=== PATIENT | male | born 1960 | race Caucasian/White ===

== ENCOUNTER 2018-11-19 06:15 | Emergency (ER) | payer BC, OTHER ==
[~2018-11-19] VITALS: Ht 160 cm; Wt 70.3 kg
--- NOTE | 2018-11-19 06:20 | NUR ---
58 Y/O M BIBA FROM HOME WITH C/O GENERALIZED BODY ACHES X3DAYS. AAOX4. C/O CHEST PAIN, LOCATED AT STERNAL AREA. 10/10 PAIN, ACHING. PAIN DOESN'T RADIATE. NSR, HR 61. ERMD NOTIFIED. BED IN LOWEST POSITION. WILL CONTINUE TO MONITOR.
[2018-11-19] MEDS ORDERED: MORPHINE SULFATE 4 MG/ML SYR IVP ONE (06:25)
[2018-11-19] MEDS ORDERED: NACL 0.9% 1,000 ML IV ONE ×2 (06:25→07:55)
[2018-11-19] MEDS ORDERED: TAMS0.4C96 PO (06:38)
[2018-11-19] MEDS ORDERED: GABA300C PO (06:38)
[2018-11-19] MEDS ORDERED: DETLA4 PO (06:38)
[2018-11-19] MEDS ORDERED: SULF500T6 PO (06:38)
[2018-11-19] MEDS ORDERED: [UNRECOGNIZED DRUG - CODE] PO (06:38)
[2018-11-19] MEDS ORDERED: RIFA300C6 PO (06:38)
[2018-11-19] MEDS ORDERED: THIA50TA39 PO (06:38)
[2018-11-19] MEDS ORDERED: MORPHINE SULFATE 2 MG/ML SYR ONE (06:51)
[2018-11-19 06:56] LABS: BASOPHILS % (AUTO) 0.5 % (0.0-2.0); EOSINOPHILS # (AUTO) 0.1 K/uL (0-0.4); EOSINOPHILS % (AUTO) 1.5 % (0.0-4.0); HEMATOCRIT 41.2 % (36-52); HEMOGLOBIN 13.9 g/dL (12.0-18.0); MEAN CORPUSCULAR HEMOGLOBIN 31 pg (27-31); MEAN CORPUSCULAR HGB CONC 34 g/dL (33-37); MONOCYTES # (AUTO) 0.6 K/uL (0.8-1.0); MONOCYTES % (AUTO) 7.8 % (1.7-9.3); NEUTROPHILS # (AUTO) 6.4 K/uL (1.8-7.7); NEUTROPHILS % (AUTO) 78.2 % (42.2-75.2); PLATELET COUNT (AUTO) 357 K/uL (140-450); RED BLOOD CELL COUNT(AUTO) 4.53 MIL/uL (4.20-6.10); RED CELL DISTRIBUTION WIDTH 15.3 % (11.6-13.7); WHITE BLOOD COUNT (AUTO) 8.1 K/uL (4.8-10.8)
[2018-11-19 06:57] LABS: APPEARANCE,URINE CLEAR (CLEAR); BILIRUBIN,URINE NEGATIVE (NEGATIVE); BLOOD, URINE TRACE-L (NEGATIVE); COLOR,URINE YELLOW (YELLOW); LEUKOCYTE ESTERASE ,URINE NEGATIVE (NEGATIVE); NITRITE, URINE NEGATIVE (NEGATIVE); UGLUCOSE NEGATIVE (NEGATIVE)
--- NOTE | 2018-11-19 07:05 | NUR ---
REPORT GIVEN TO RIKY RIOJAS. TRANSFER OF CARE AT THIS TIME.
[2018-11-19 07:06] LABS: RBC,URINE 0-5 /HPF (0-5)
[2018-11-19 07:07] LABS: WBC,URINE 0-5 /HPF (0-5)
--- NOTE | 2018-11-19 07:08 | NUR ---
X-RAY AT BEDSIDE
[2018-11-19 07:10] LABS: ALBUMIN 4.2 g/dL (3.4-5.0); ANION GAP 12.9 (8-16); CARBON DIOXIDE 26.1 mmol/L (21-32); CREATININE 1.2 mg/dL (0.7-1.3); PROTHROMBIN TIME 16.8 secs (10.8-13.4); TOTAL BILIRUBIN 0.3 mg/dL (0.0-1.0)
--- NOTE | 2018-11-19 07:32 | NUR ---
PT RESTING IN BED, NO NEW NEEDS AT THIS TIME.
[2018-11-19] MEDS ORDERED: POTASSIUM CHLORIDE 20% 40 MEQ/15 ML UDC PO ONE (07:35)
[2018-11-19] MEDS ORDERED: MAGNESIUM OXIDE 400 MG TAB PO ONE (07:35)
--- NOTE | 2018-11-19 07:40 | NUR ---
CALLED PHARMACY FOR MAG TABLETS, PER YOLA, THEY WILL BRING IT OVER
--- NOTE | 2018-11-19 08:12 | NUR ---
PT STATES MEDICATION PROVIDED PAIN RELIEF, NO CHEST PAIN AT THIS TIME.
--- NOTE | 2018-11-19 08:23 | NUR ---
DR. GUIDRY AT BEDSIDE RE EVALUATING PT
--- NOTE | 2018-11-19 09:33 | NUR ---
[facility] CALLED FOR PT PER REQUEST, WILL ARRIVE IN 30-45 MIN
--- NOTE | 2018-11-19 09:45 | NUR ---
Patient discharged with v/s stable. Written and verbal after care instructions given and explained. Patient verbalized understanding. Ambulatory with steady gait. All questions addressed prior to discharge. Advised to follow up with PMD. Pt will wait in lobby for yellow cab.
[2018-11-19 09:46] VITALS: BP 114/48
== END 2018-11-19 09:45 | disposition home or self-care (01) ==
LOC: MED 06:15
DX: E87.6 Hypokalemia (principal); E86.0 Dehydration; M25.561 Pain in right knee; M25.562 Pain in left knee; M25.461 Effusion, right knee; Z86.73 Personal history of transient ischemic attack (TIA), and cerebral infarction without residual deficits; Z79.899 Other long term (current) drug therapy; Z95.5 Presence of coronary angioplasty implant and graft
CPT/HCPCS: 29505; 36415; 71045; 73562; 80053; 81001; 83605; 83880; 84484; 85025; 85610; 87040; 87086; 93005; 96361; 96374; 99284; J2270; J7030; Q0092

== ENCOUNTER 2019-06-12 05:34 | Emergency (ER) | payer OTHER ==
[~2019-06-12] VITALS: Ht 160 cm; Wt 74.8 kg
[~2019-06-12 05:34] MED LIST: DETLA4 PO; GABA300C PO; RIFA300C6 PO; SULF500T6 PO; TAMS0.4C96 PO; THIA50TA39 PO; [UNRECOGNIZED DRUG - CODE] PO
--- NOTE | 2019-06-12 05:35 | NUR ---
58 YEAR OLD MALE BIBA COMPLAINS OF HEADACHE, NAUSEA, AND BODY ACHE X 40MINS. PATIENT STATES HE WOKE UP WITH FLU LIKE SYMPTOMS. PATIENT ALERT AND ORIENTED, BREATHING EVEN AND UNLABORED, SKIN WARM AND DRY. BED IN LOWEST POSITION, LOCKED, BED RAIL UPX1. PMH - HTN, STENTS ALLERGIES - NKA
[2019-06-12] MEDS ORDERED: KETOROLAC 30 MG/ML VIAL IM ONE (05:40)
[2019-06-12 05:44] VITALS: BP 95/44
--- NOTE | 2019-06-12 05:50 | NUR ---
PATIENT ALERT AND ORIENTED, BREATHING EVEN AND UNLABORED.
--- NOTE | 2019-06-12 06:10 | NUR ---
PATIENT RESTING WITH EYES CLOSED, BREATHING EVEN AND UNLABORED
[2019-06-12] MEDS ORDERED: HYDROcodone/APAP 5/325 MG 1 TAB TAB PO ONE (06:15)
[2019-06-12 06:40] VITALS: BP 97/46
--- NOTE | 2019-06-12 06:40 | NUR ---
Patient discharged with v/s stable. Written and verbal after care instructions ABOUT INFLUENZA given and explained. Patient alert, oriented and verbalized understanding of instructions. Ambulatory with steady gait. All questions addressed prior to discharge. ID band removed. Patient advised to follow up with PMD. Rx of TAMIFLU AND IBUPROFEN given. Patient educated on indication of medication including possible reaction and side effects. Opportunity to ask questions provided and answered. PATIENT INSTRUCTED NOT TO DRIVE DUE TO [place], STATED HE WILL BE GETTING A CAB
== END 2019-06-12 06:40 | disposition home or self-care (01) ==
LOC: MED 05:34
DX: J11.1 Influenza due to unidentified influenza virus with other respiratory manifestations (principal); R51 Headache; I10 Essential (primary) hypertension; Z79.899 Other long term (current) drug therapy; Z86.73 Personal history of transient ischemic attack (TIA), and cerebral infarction without residual deficits
CPT/HCPCS: 96372; 99283; J1885

== ENCOUNTER 2021-08-21 05:54 | Emergency (ER) | payer OTHER, SELFPAY ==
[~2021-08-21] VITALS: Ht 165.1 cm; Wt 74.8 kg
[~2021-08-21 05:54] MED LIST changes: +ASPI-1856 PO; +ATOR20TA40 PO; +LISI5TAB24 PO; +METO25TA PO; -RIFA300C6 PO; +WARF-83 PO
[2021-08-21 05:55] VITALS: BP 118/52
--- NOTE | 2021-08-21 05:57 | NUR ---
Dr. Gray examining patient.
--- NOTE | 2021-08-21 05:58 | NUR ---
PT URSZULA GODINEZS. TAKEN TO BED 4
--- NOTE | 2021-08-21 06:25 | NUR ---
walked blood to lab received by photonic laboratory technician
--- NOTE | 2021-08-21 06:32 | NUR ---
xr at bedside
[2021-08-21 07:04] LABS: BASOPHILS % (AUTO) 0.4 % (0.0-2.0); EOSINOPHILS # (AUTO) 0.2 K/uL (0-0.4); EOSINOPHILS % (AUTO) 3.9 % (0.0-4.0); HEMATOCRIT 35.9 % (36-52); HEMOGLOBIN 12.1 g/dL (12.0-18.0); LYMPHOCYTES # (AUTO) 0.8 K/uL (2.0-11.5); LYMPHOCYTES % (AUTO) 19.5 % (20.5-51.1); MEAN CORPUSCULAR HEMOGLOBIN 31 pg (27-31); MEAN CORPUSCULAR HGB CONC 34 g/dL (33-37); MONOCYTES # (AUTO) 0.3 K/uL (0.8-1.0); MONOCYTES % (AUTO) 6.4 % (1.7-9.3); NEUTROPHILS # (AUTO) 2.9 K/uL (1.8-7.7); NEUTROPHILS % (AUTO) 69.8 % (42.2-75.2); PLATELET COUNT (AUTO) 153 K/uL (140-450); RED BLOOD CELL COUNT(AUTO) 3.95 MIL/uL (4.20-6.10); RED CELL DISTRIBUTION WIDTH 14.6 % (11.6-13.7); WHITE BLOOD COUNT (AUTO) 4.1 K/uL (4.8-10.8)
[2021-08-21 07:18] LABS: PROTHROMBIN TIME 14.7 secs (10.8-13.4)
--- NOTE | 2021-08-21 07:19 | NUR ---
Pt report given to Gayle LAN. Transfer of care at this time.
--- NOTE | 2021-08-21 07:20 | NUR ---
RECEIVED REPORT FROM RIKY INGRAM. TRANSFER OF CARE AT THIS TIME.
[2021-08-21 07:21] LABS: ALBUMIN 3.3 g/dL (3.4-5.0); ANION GAP 12.3 (8-16); CARBON DIOXIDE 25.7 mmol/L (21-32); CREATININE 0.8 mg/dL (0.6-1.3); TOTAL BILIRUBIN 0.9 mg/dL (0.0-1.0)
--- NOTE | 2021-08-21 07:41 | NUR ---
PT RESTING IN BED, HOB ELEVATED, VSS, WILL CONTINUE TO MONITOR.
--- NOTE | 2021-08-21 08:31 | NUR ---
INTERVENTIONAL TECH AT PT BEDSIDE.
--- NOTE | 2021-08-21 09:06 | NUR ---
PT SLEEPING, VISIBLE EQUAL RISE AND FALL OF CHEST, VSS, WILL CONTINUE TO MONITOR.
[2021-08-21 09:49] VITALS: BP 126/66
--- NOTE | 2021-08-21 09:49 | NUR ---
Patient discharged with v/s stable. Written and verbal after care instructions given FOR CHEST PAIN PBSERVATION and explained. Patient verbalized understanding. Ambulatory with steady gait. All questions addressed prior to discharge. Advised to follow up with PMD.
--- NOTE | 2021-08-21 09:57 | NUR ---
CALLED [facility] FOR PT TAXI VOUCHER. ETA 45MINUTES PT TO WAIT IN LOBBY.
--- NOTE | 2021-08-21 10:14 | NUR ---
PT AMBULATED TO TAXI.
--- NOTE | 2021-08-21 10:15 | NUR ---
TAXI VOUCHER GIVEN TO BAND PRESSER AND FORGOT TO KEEP PINK SLIP. DENTURE PACKER XANDER HARRIS MADE AWARE AND STATED IT WAS FINE
[2021-08-22] MEDS ORDERED: DIPH25TA53 PO (09:30)
[2021-08-22] MEDS ORDERED: PRED20TA5 PO (09:30)
== END 2021-08-21 09:49 | disposition home or self-care (01) ==
LOC: MED 05:54
DX: R07.2 Precordial pain (principal); I10 Essential (primary) hypertension; Z86.73 Personal history of transient ischemic attack (TIA), and cerebral infarction without residual deficits; Z79.899 Other long term (current) drug therapy; Z79.82 Long term (current) use of aspirin
CPT/HCPCS: 36415; 71045; 80053; 83880; 84484; 85025; 85610; 85730; 93005; 99285; Q0092

== ENCOUNTER 2021-08-22 07:41 | Emergency (ER) | payer OTHER ==
[~2021-08-22] VITALS: Ht 172.7 cm; Wt 71.2 kg
--- NOTE | 2021-08-22 07:42 | NUR ---
Patient BIBA to bed 6.
[2021-08-22 07:47] VITALS: BP 138/88
--- NOTE | 2021-08-22 07:55 | NUR ---
Pt bib amr c/o swollen tongue with dry cough, no sob x am. PT DENIES N/V/D; SKIN IS INTACT, PINK/WARM/DRY; AAOX4, PERRL, WITH EVEN AND STEADY GAIT; LUNGS CLEAR BL, BREATHING UNLABORED; HR EVEN AND REGULAR. BS ACTIVE X4. PT DENIES ANY FEVER, CP, SOB AT THIS TIME; PT STATES 2/10 PAIN AT THIS TIME; VSS; PATIENT POSITIONED FOR COMFORT; HOB ELEVATED; BEDRAILS UP X2; BED DOWN.
--- NOTE | 2021-08-22 08:36 | NUR ---
er md dr Vaughan at bedside
[2021-08-22] MEDS ORDERED: diphenhydrAMINE 50 MG CAP PO ONE (08:45)
[2021-08-22] MEDS ORDERED: KETOROLAC 60 MG/2 ML VIAL IM ONE (08:45)
--- NOTE | 2021-08-22 08:59 | NUR ---
PATIENT MEDICATED PER ORDERS, PATIENT TOLERATED WELL.
--- NOTE | 2021-08-22 09:25 | NUR ---
60/M BIB SELF, AMBULATORY W/ STEADY GAIT, AA&OX4; PATIENT PRESENTS TO ED WITH C/O THROAT PAIN 5/10 AND TONGUE SWELLING SINCE THIS MORNING. PATIENT DENIES EXPOSURE TO NEW MEDICATIONS, SOAPS, FOOD, DETERGENT. DENIES SOB, CP, N/V/D, MEDICATION FOR SYMPTOM RELIEF. NO SIGNS OF RESPIRATORY DISTRESS NOTED, RR EVEN AND UNLABORED, AIRWAY PATENT. PMH: ANGIOPLASTY, HTN MEDS: WARFARIN, OMEPRAZOLE, FOLIC ACID, MTHOTREXATE, PRAVASTATIN, OMEGA 3, D3, "BEE THERAPY" Addendum: 08/22/21 at 0925 by [email or web address] 60/M BIBA, AMBULATORY W/ STEADY GAIT, AA&OX4; PATIENT PRESENTS TO ED WITH C/O THROAT PAIN 5/10 AND TONGUE SWELLING SINCE THIS MORNING. PATIENT DENIES EXPOSURE TO NEW MEDICATIONS, SOAPS, FOOD, DETERGENT. DENIES SOB, CP, N/V/D, MEDICATION FOR SYMPTOM RELIEF. NO SIGNS OF RESPIRATORY DISTRESS NOTED, RR EVEN AND UNLABORED, AIRWAY PATENT. PMH: ANGIOPLASTY, HTN MEDS: WARFARIN, OMEPRAZOLE, FOLIC ACID, MTHOTREXATE, PRAVASTATIN, OMEGA 3, D3, "BEE THERAPY"
[2021-08-22] MEDS ORDERED: DIPH25TA53 PO (09:30)
[2021-08-22] MEDS ORDERED: PRED20TA5 PO (09:30)
[2021-08-22 10:25] VITALS: BP 130/78
--- NOTE | 2021-08-22 10:25 | NUR ---
Patient discharged with v/s stable. Written and verbal after care instructions ABOUT ANAPHYLACTIC REACTION given and explained. Patient alert, oriented and verbalized understanding of instructions. Ambulatory with steady gait. All questions addressed prior to discharge. ID band removed. Patient advised to follow up with PMD. Rx of BENADRYL AND DELTASONE given. PATIENT PROVIDED WITH TWO BUS PASSES UPON DISCHARGE.
== END 2021-08-22 10:25 | disposition home or self-care (01) ==
LOC: MED 07:41
DX: K13.0 Diseases of lips (principal); L53.9 Erythematous condition, unspecified; I10 Essential (primary) hypertension; Z79.899 Other long term (current) drug therapy; Z86.73 Personal history of transient ischemic attack (TIA), and cerebral infarction without residual deficits; Z98.890 Other specified postprocedural states
CPT/HCPCS: 96372; 99283; J1885; Q0163

== ENCOUNTER 2021-09-03 12:28 | Emergency (ER) | payer OTHER ==
[~2021-09-03] VITALS: Ht 160 cm; Wt 70.4 kg
[~2021-09-03 12:28] MED LIST changes: +DIPH25TA53 PO; +PRED20TA5 PO
[2021-09-03 12:35] VITALS: BP 141/74
--- NOTE | 2021-09-03 12:46 | NUR ---
Noemy castellano in [facility] - 09/03/21 at 1248 by [email or web address] PATIENT AMBULATED TO BED 3.
--- NOTE | 2021-09-03 12:48 | NUR ---
PATIENT W/C ASSISTED TO BED 3.
--- NOTE | 2021-09-03 13:00 | NUR ---
60 Y/O MALE BIB SELF C/O DIZZINESS, HEADACHE RATED 7/10 X TODAY. PT STATES HE WAS SEEN THIS AM AT [facility] BUT STATES "THERE WAS NO TREATMENT RENDERED". CURRENTLY PT DENIES LOC, FEVER, CHILLS, NAUSEA, VOMITING. PT DENIES SOB, CHEST PAIN. PT DENIES NECK PAIN. PT TOOK TYLENOL PRIOR TO ARRIVAL WITH NO SYMPTOMATIC PAIN RELIEF. PT ALERT AND ORIENTED X4. BED IN LOWEST POSITION. BEDSIDE RAIL X1. CALL LIGHT WITHIN REACH. PMH: HTN, HLD, STROKE, HEART SURGERY IN 2012
[2021-09-03] MEDS ORDERED: MECLIZINE 25 MG TAB PO ONE (13:15)
--- NOTE | 2021-09-03 13:15 | NUR ---
AT PT BEDSIDE
[2021-09-03] MEDS ORDERED: diazePAM 5 MG TAB PO ONE (13:40)
[2021-09-03] MEDS ORDERED: DIAZ5TAB8 PO (13:50)
[2021-09-03 14:42] VITALS: BP 141/74
--- NOTE | 2021-09-03 14:43 | NUR ---
Patient discharged with v/s stable. Written and verbal after care instructions given and explained. Patient alert, oriented and verbalized understanding of instructions. Ambulatory with steady gait. All questions addressed prior to discharge. ID band removed. Patient advised to follow up with PMD. Rx of DIAZEPAM given. Patient educated on indication of medication including possible reaction and side effects. Opportunity to ask questions provided and answered.
== END 2021-09-03 14:42 | disposition home or self-care (01) ==
LOC: MED 12:28
DX: R42 Dizziness and giddiness (principal); R51.9 Headache, unspecified; I10 Essential (primary) hypertension; Z79.899 Other long term (current) drug therapy; Z86.73 Personal history of transient ischemic attack (TIA), and cerebral infarction without residual deficits; Z98.890 Other specified postprocedural states
CPT/HCPCS: 81002; 99283; J8597

== ENCOUNTER 2021-09-15 01:03 | Emergency (ER) | payer OTHER ==
[~2021-09-15] VITALS: Ht 170.2 cm; Wt 74.8 kg
[~2021-09-15 01:03] MED LIST changes: +DIAZ5TAB8 PO
--- NOTE | 2021-09-15 01:07 | NUR ---
PT BROUGHT TO BED 1 VIA [facility]YAAN ONEILL
[2021-09-15 01:12] VITALS: BP 130/68
[2021-09-15] MEDS ORDERED: CYCL-711 PO (01:29)
[2021-09-15] MEDS ORDERED: TRI48 PO (01:29)
[2021-09-15] MEDS ORDERED: WARF3TAB18 PO (01:29)
[2021-09-15] MEDS ORDERED: OMEP40EC23 PO (01:29)
[2021-09-15] MEDS ORDERED: PRAV20TA5 PO (01:29)
[2021-09-15] MEDS ORDERED: HYDROcodone/APAP 5/325 MG 1 TAB TAB PO ONE (02:05)
--- NOTE | 2021-09-15 02:10 | NUR ---
medicated as per ERMDs order, tolerated well.
[2021-09-15 02:17] LABS: BASOPHILS # (AUTO) 0.1 K/uL (0.00-0.22); BASOPHILS % (AUTO) 0.6 % (0.0-2.0); EOSINOPHILS # (AUTO) 0.2 K/uL (0-0.4); EOSINOPHILS % (AUTO) 1.9 % (0.0-4.0); HEMATOCRIT 36.2 % (36-52); HEMOGLOBIN 11.9 g/dL (12.0-18.0); LYMPHOCYTES # (AUTO) 1.3 K/uL (2.0-11.5); LYMPHOCYTES % (AUTO) 15.7 % (20.5-51.1); MEAN CORPUSCULAR HEMOGLOBIN 31 pg (27-31); MEAN CORPUSCULAR HGB CONC 33 g/dL (33-37); MEAN CORPUSCULAR VOLUME 93.1 fL (80-94); MONOCYTES # (AUTO) 0.7 K/uL (0.8-1.0); MONOCYTES % (AUTO) 8.7 % (1.7-9.3); NEUTROPHILS % (AUTO) 73.1 % (42.2-75.2); PLATELET COUNT (AUTO) 192 K/uL (140-450); RED BLOOD CELL COUNT(AUTO) 3.89 MIL/uL (4.20-6.10); WHITE BLOOD COUNT (AUTO) 8.2 K/uL (4.8-10.8)
[2021-09-15 02:47] LABS: PROTHROMBIN TIME 12.1 secs (10.8-13.4)
[2021-09-15 02:48] LABS: ALBUMIN 3.1 g/dL (3.4-5.0); ANION GAP 10.6 (8-16); CARBON DIOXIDE 27.9 mmol/L (21-32); CREATININE 0.8 mg/dL (0.6-1.3); POTASSIUM 3.5 mmol/L (3.5-5.1); TOTAL BILIRUBIN 0.4 mg/dL (0.0-1.0)
[2021-09-15] MEDS ORDERED: ACET-10509 PO ×2 (03:57→06:12)
--- NOTE | 2021-09-15 05:21 | NUR ---
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
[2021-09-15 06:04] VITALS: BP 119/79
--- NOTE | 2021-09-15 06:16 | NUR ---
Patient discharged with v/s stable. Written and verbal after care instructions given and explained. Patient alert, oriented and verbalized understanding of instructions. Ambulatory with steady gait. All questions addressed prior to discharge. ID band removed. Patient advised to follow up with PMD. Rx of ACETAMINOPHEN given. Patient educated on indication of medication including possible reaction and side effects. Opportunity to ask questions provided and answered. TAXI VOUCHER PROVIDED FOR PT. PT HAS HOUSE KEYS, CELL PHONE, AND BELONGINGS (INCLUDING MEDICATION) AT [facility].
== END 2021-09-15 06:04 | disposition home or self-care (01) ==
LOC: MED 01:03
DX: S63.502A Unspecified sprain of left wrist, initial encounter (principal); R07.89 Other chest pain; I10 Essential (primary) hypertension; Z79.899 Other long term (current) drug therapy; Z86.73 Personal history of transient ischemic attack (TIA), and cerebral infarction without residual deficits; Z98.890 Other specified postprocedural states; X58.XXXA Exposure to other specified factors, initial encounter; Y93.89 Activity, other specified; Y92.89 Other specified places as the place of occurrence of the external cause; Y99.8 Other external cause status
CPT/HCPCS: 36415; 71045; 73110; 80053; 83880; 84484; 85025; 85610; 85730; 93005; 99285; Q0092

== ENCOUNTER 2021-09-17 11:54 | Emergency (ER) | payer OTHER ==
[~2021-09-17] VITALS: Ht 160 cm; Wt 75.7 kg
[~2021-09-17 11:54] MED LIST changes: +ACET-10509 PO; -ASPI-1856 PO; +CYCL-711 PO; -DETLA4 PO; -DIAZ5TAB8 PO; -DIPH25TA53 PO; -LISI5TAB24 PO; +OMEP40EC23 PO; +PRAV20TA5 PO; -PRED20TA5 PO; -SULF500T6 PO; -TAMS0.4C96 PO; +TRI48 PO; -WARF-83 PO; +WARF3TAB18 PO; -[UNRECOGNIZED DRUG - CODE] PO
[2021-09-17 11:58] VITALS: BP 129/84
--- NOTE | 2021-09-17 12:15 | NUR ---
60yo male PT C/O OF DULLPAIN THAT EXTENDS FROM TOP OF LEFT HAND TO LEFT WRIST AND FOREARM. PT STATES HE FELL FORWARD AT HOME. PT STATES ONLY HAVING PAIN WHEN MOVING HAND. PT HAS SLIGHT EDEMA ON TOP OF HAND ACROSS KNUCKLES. PABLO
--- NOTE | 2021-09-17 12:39 | NUR ---
XRAY AT BEDSIDE
[2021-09-17] MEDS ORDERED: IBUP-2213 PO (13:14)
[2021-09-17] MEDS ORDERED: ACETAMINOPHEN EXTRA STRENGTH 500 MG TAB PO SCH (13:20)
[2021-09-17] MEDS ORDERED: ONDA-188 PO (13:41)
--- NOTE | 2021-09-17 13:45 | NUR ---
Patient discharged with v/s stable. Written and verbal after care instructions ABOUT MUSCULOSKELETON PAIN given and explained. Patient alert, oriented and verbalized understanding of instructions. Ambulatory with steady gait. All questions addressed prior to discharge. ID band removed. Patient advised to follow up with PMD. Rx of IBURPROFEN AND ZOFRAN given. Opportunity to ask questions provided and answered.
--- NOTE | 2021-09-17 13:47 | NUR ---
Chart checked and completed. The patient's care was reviewed and supervised by Alma Delia Verdugo RN.
== END 2021-09-17 13:42 | disposition home or self-care (01) ==
LOC: MED 11:54
DX: M79.642 Pain in left hand (principal); M25.532 Pain in left wrist; M79.632 Pain in left forearm; I10 Essential (primary) hypertension; I25.10 Atherosclerotic heart disease of native coronary artery without angina pectoris; E78.5 Hyperlipidemia, unspecified; Z86.73 Personal history of transient ischemic attack (TIA), and cerebral infarction without residual deficits; Z98.890 Other specified postprocedural states
CPT/HCPCS: 73090; 73100; 73120; 99284

== ENCOUNTER 2023-01-29 06:50 | Emergency (ER) | payer OTHER ==
[~2023-01-29] VITALS: Ht 172.7 cm; Wt 72.6 kg
[~2023-01-29 06:50] MED LIST changes: +IBUP-2213 PO; +ONDA-188 PO
[2023-01-29 06:58] VITALS: PULSE 69; RESP 16; TEMP 97.4; O2SAT 99
[2023-01-29] MEDS ORDERED: KETOROLAC 60 MG/2 ML VIAL IM ONE (07:05)
[2023-01-29] MEDS ORDERED: MECL-303 PO (08:06)
[2023-01-29] MEDS ORDERED: HYDR-5191 PO (08:06)
[2023-01-29] MEDS ORDERED: IBUP-2213 PO (08:06)
[2023-01-29 08:34] VITALS: BP 134/80; PULSE 74; RESP 17; O2SAT 98
== END 2023-01-29 08:34 | disposition home or self-care (01) ==
LOC: MED 06:50
DX: M25.532 Pain in left wrist (principal); M54.50 Low back pain, unspecified; R42 Dizziness and giddiness; E11.9 Type 2 diabetes mellitus without complications; I10 Essential (primary) hypertension; Z98.890 Other specified postprocedural states; Z79.899 Other long term (current) drug therapy; Z79.1 Long term (current) use of non-steroidal anti-inflammatories (NSAID); Z79.01 Long term (current) use of anticoagulants
CPT/HCPCS: 96372; 99283; J1885